=== PATIENT | female | born 1990 ===

== ENCOUNTER → 2020-09-24 | Outpatient (CLI) | payer OTHER | END | disposition home or self-care (01) | LOC: PRENATAL 14:59 | PROVIDERS: ATTEND Obstetrics & Gynecology Maternal & Fetal Medicine | DX: Z36.89 Encounter for other specified antenatal screening (principal); O36.80X1 Pregnancy with inconclusive fetal viability, fetus 1; Z3A.14 14 weeks gestation of pregnancy ==

== ENCOUNTER → 2020-10-29 | Outpatient (CLI) | payer OTHER | END | disposition home or self-care (01) | LOC: PRENATAL 15:20 | PROVIDERS: ATTEND Obstetrics & Gynecology Maternal & Fetal Medicine | DX: O35.0XX1 Maternal care for (suspected) central nervous system malformation in fetus, fetus 1 (principal); O35.3XX1 Maternal care for (suspected) damage to fetus from viral disease in mother, fetus 1; O98.512 Other viral diseases complicating pregnancy, second trimester; Z36.89 Encounter for other specified antenatal screening; Z3A.20 20 weeks gestation of pregnancy ==

== ENCOUNTER 2020-12-05 19:42 | Emergency (ER) | payer OTHER ==
[~2020-12-05] VITALS: Ht 149.9 cm; Wt 68.5 kg
[2020-12-05] MEDS ORDERED: PRENATALES (20:22)
[2020-12-05] MEDS ORDERED: PANADOL (20:22)
== END 2020-12-05 23:51 | disposition home or self-care (01) ==
LOC: ER 19:42
DX: E86.0 Dehydration (principal); R51.9 Headache, unspecified; R11.0 Nausea

== ENCOUNTER 2021-01-29 13:35 | Outpatient (CLI) | payer OTHER ==
[~2021-01-29 13:35] MED LIST: PANADOL; PRENATALES
== END 2021-01-29 14:27 | disposition home or self-care (01) ==
LOC: PRENATAL 13:35
PROVIDERS: ATTEND Obstetrics & Gynecology Maternal & Fetal Medicine
DX: O35.0XX1 Maternal care for (suspected) central nervous system malformation in fetus, fetus 1 (principal); O26.843 Uterine size-date discrepancy, third trimester; O36.8131 Decreased fetal movements, third trimester, fetus 1; O28.1 Abnormal biochemical finding on antenatal screening of mother; Z36.89 Encounter for other specified antenatal screening; Z3A.32 32 weeks gestation of pregnancy

== ENCOUNTER 2021-03-15 07:35 | Inpatient (IN) | payer OTHER ==
[~2021-03-15] VITALS: Ht 149.9 cm; Wt 3.6 kg
[2021-03-15] MEDS ORDERED: VALTREX1000 MG PO (09:47)
[2021-03-15] MEDS ORDERED: IRON236 MG (09:48)
[2021-03-15] MEDS ORDERED: PRENATAL + DHA1 EAC1 (11:48)
[2021-03-15] MEDS ORDERED: TYLENOL325 MG (11:48)
== END 2021-03-18 14:53 | disposition home or self-care (01) | DRG 787 ==
LOC: OB/GYN 07:35 → LDR 07:35 → OB/GYN 16:16
PROVIDERS: ADMIT Specialist; ATTEND Specialist
PROC: 10907ZC Drainage of Amniotic Fluid, Therapeutic from Products of Conception, Via Natural or Artificial Opening (ICD-10-PCS; 2021-03-15)
PROC: 3E033VJ Introduction of Other Hormone into Peripheral Vein, Percutaneous Approach (ICD-10-PCS; 2021-03-15)
PROC: 4A1HXFZ Monitoring of Products of Conception, Cardiac Rhythm, External Approach (ICD-10-PCS; 2021-03-15)
PROC: 10D00Z1 Extraction of Products of Conception, Low, Open Approach (ICD-10-PCS; principal; 2021-03-15 17:00)
DX: O65.9 Obstructed labor due to maternal pelvic abnormality, unspecified (principal); O99.12 Other diseases of the blood and blood-forming organs and certain disorders involving the immune mechanism complicating childbirth; O61.0 Failed medical induction of labor; D69.6 Thrombocytopenia, unspecified; Z3A.39 39 weeks gestation of pregnancy; Z37.0 Single live birth

== ENCOUNTER → 2021-08-13 | Emergency (ER) | payer OTHER ==
[~2021-08-13] MED LIST changes: +IRON236 MG; +PRENATAL + DHA1 EAC1; +TYLENOL325 MG; +VALTREX1000 MG PO
== END | disposition left against medical advice (07) ==
LOC: ER 15:14
DX: Z53.21 Procedure and treatment not carried out due to patient leaving prior to being seen by health care provider (principal)